=== PATIENT | male | born 1960 | race Caucasian/White ===

== ENCOUNTER 2022-07-12 15:45 | Inpatient (IN) | payer OTHER ==
[2022-07-12] VITALS (13 sets, daily range): BP systolic 93–155; BP diastolic 65–99
[~2022-07-12] VITALS: Ht 182.9 cm; Wt 148.0 kg
[~2022-07-12 15:45] MED LIST: CELE100 PO; LISI5 PO; LISINOPRIL-HCT1 EAC1 PO; ROSU10TA PO; WARF5 PO
--- NOTE | 2022-07-12 19:29 | NUR ---
DIRECT ADMIT / END OF SHIFT PT BROUGHT TO U-05 BY EMS FROM [facility] @ APPROX 1700. PT ABLE TO INDEPENDENTLY STAND & AMBULATE FROM [facility] TO U BED. PT VSS. MONITOR SHOWING SR, HR 60s-70s W/ PVCs. HEPARIN GTT INFUSING UPON ARRIVAL. EMS REPORTING PT C/O DIZZINESS DURATION OF TRAVEL FROM [facility] TO HERE. EMS REPORTING NITRO GIVEN X1 D/T PT REPORT OF MID CP & CP RELIEVED W/ NITRO. UPON ARRIVAL, PT REPORTING RETURN OF MID CP, RATING CP 6/10. MD NOTIFIED OF PT ARRIVAL & CP. EKG DONE & NITRO GIVEN PER MD ORDER. NITRO GIVEN X3 W/ PT REPORT OF MID CHEST PAIN REDUCING, BUT ALSO THEN REPORTING PAIN IN BETWEEN SHOULDER BLADES PRESENT & DENYING IMPROVEMENT. TROPONIN DRAWN, HIGHER THAN TROP DRAWN PER [facility]. MD NAVARRETE TO BEDSIDE FOR PT EVALUATION W/ ORDER FOR STAT CTA [place] & STRICT BEDREST. PT GONE TO IMAGING, SLID OVER FROM PCU BED TO [facility] BY 4 STAFF MEMBERS. PT NOW BACK IN . PT NPO. HEPARIN GTT INFUSING PER ORDERS & NS GTT INITIATED PER MD ORDERS. REPORT GIVEN TO ACCEPTING INSEMINATION WORKER RN.
[2022-07-12 21:04] LABS: Hematocrit 37.2 % (37.0-53.0); Hemoglobin 11.9 g/dL (13.5-17.5)
[2022-07-13] VITALS (11 sets, daily range): BP systolic 103–126; BP diastolic 54–85
--- NOTE | 2022-07-13 02:35 | NUR ---
PATIENT UPDATE PATIENT WITH CHEST PAIN THAT WAS UNRELIEVED BY SL NITRO X3 PER EMAR EARLIER IN THE NIGHT. ORDER PLACED FOR IV MORPHINE PER MD ARAUZ. CHEST PAIN DESCRIBED 6-7/10, SHARP/BURNING, THAT RADIATES TO SHOULDER/BACK. AFTER MORPHINE ADMINISTRATION PATIENT STATED THAT IT "TOOK THE EDGE OFF" AND WAS A 2-3 AND HE WOULD BE ABLE TO SLEEP. PATIENT STATING THAT THE CHEST PAIN COMES IN WAVES. VITALS STABLE. WILL CONTINUE TO MONITOR
--- NOTE | 2022-07-13 04:11 | NUR ---
PATIENT UPDATE PATIENT CALLED THIS RN TO REPORT CHEST PAIN THAT RETURNED APPROXIMATELY 1 HR AFTER ADMINISTRATION OF IV MORPHINE. PATIENT REPORTING THAT PAIN RETURNED TO 6/10 WITH CONTINUED CHARACTERISTICS PREVIOUSLY DESCRIBED IN LAST NOTE BY THIS RN. CALL PLACED TO MD ARAUZ REGARDING CHEST PAIN. MD ARAUZ WITH ORDERS FOR DILAUDID; GIVEN PER EMAR. PATIENT REPORTED RELIEF AND HAS BEEN SLEEPING SINCE.
[2022-07-13 04:37] LABS: BASOPHILS ABSOLUTE AUTO 0.02 K/mm3 (0.00-0.23); BASOPHILS PERCENT AUTO 0 % (0-2); EOSINOPHILS ABSOLUTE AUTO 0.06 K/mm3 (0.00-0.68); EOSINOPHILS PERCENT AUTO 1 % (0-6); Hematocrit 36.5 % (37.0-53.0); Hemoglobin 11.6 g/dL (13.5-17.5); IMMATURE GRAN ABSOLUTE AUTO 0.01 K/mm3 (0.00-0.10); IMMATURE GRAN PERCENT AUTO 0 % (0-1); LYMPHOCYTES ABSOLUTE AUTO 1.88 K/mm3 (0.84-5.20); LYMPHOCYTES PERCENT AUTO 32 % (21-46); MONOCYTES ABSOLUTE AUTO 0.66 K/mm3 (0.16-1.47); MONOCYTES PERCENT AUTO 11 % (4-13); Mean Corpuscular HGB 30.6 pg (26.0-34.0); Mean Corpuscular HGB Conc 31.8 g/dL (31.5-36.5); Mean Corpuscular Volume 96 fL (80-100); Mean Platelet Volume 10.2 fL (9.1-12.4); NEUTROPHILS ABSOLUTE AUTO 3.34 K/mm3 (1.96-9.15); NEUTROPHILS PERCENT AUTO 56 % (41-73); Platelet Count 198 K/mm3 (150-400); RDW Coefficient Variation 13.9 % (11.7-14.2); RDW Standard Deviation 48.9 fL (35.1-46.3); Red Blood Cell Count 3.79 M/mm3 (4.30-5.90); White Blood Cell Count 5.97 K/mm3 (4.00-11.30)
[2022-07-13 05:17] LABS: Alanine Aminotransfer (ALT/SGP 28 U/L (12-78); Albumin, Blood 3.1 g/dL (3.4-5.0); Alk Phos 61 U/L (50-136); Anion Gap 7 mmol/L (6-16); Aspartate Aminotrans (AST/SGOT 54 U/L (12-37); Bilirubin, Total 0.4 mg/dL (0.1-1.0); Blood Urea Nitrogen 24 mg/dL (8-24); Bun/Creatinine Ratio 22.9 (12.0-20.0); CHOL/HDL RATIO 3.1; CO2, Blood 26 mmol/L (21-32); Calcium, Blood 8.4 mg/dL (8.5-10.1); Chloride, Blood 109 mmol/L (98-108); Cholesterol 192 mg/dL (50-200); Creatinine, Blood 1.05 mg/dL (0.60-1.20); Globulin, Blood 3.2 g/dL (2.2-4.0); Glomerular Filtration Rate 80 (60-); Glucose, Blood 103 mg/dL (70-99); HDL Cholesterol 62 mg/dL (>39); LDL/HDL RATIO 1.8; Low Density Lipoprotein Chol 114 mg/dL (0-110); Potassium, Blood 3.6 mmol/L (3.5-5.5); Sodium, Blood 142 mmol/L (136-145); Total Protein, Blood 6.3 g/dL (6.4-8.2); Triglycerides 78 mg/dL (30-160); Very Low Density Lipoprot Chol 15 mg/dL (6-32)
--- NOTE | 2022-07-13 05:17 | NUR ---
SHIFT SUMMARY PATIENT CURRENTLY SLEEPING. SEE PREVIOUS NOTES REGARDING CHEST PAIN. ON RA WITH SPO2 >92%. BP STABLE. SR ON MONITOR WITH OCCASIONAL PVC'S WITH HR 60-70'S. AFEBRILE. NO ST CHANGES NOTED ON MONITOR. SEVERAL OCCURANCES OF CHEST PAIN THROUGHOUT THIS SHIFT. UNRELIEVED BY SL NITRO AND MORPHINE. 1MG IV DILAUDID GIVEN WITH NOTED IMPROVEMENT. HEP GTT INFUSING PER EMAR. NS INFUSING PER EMAR. PT HAS BEEN NPO SINCE MIDNIGHT. AT BEDSIDE. BED IN LOWEST POSITION AND CALL LIGHT WITHIN REACH. THIS RN MIKEY CONTINUE TO MONITOR UNTIL SHIFT CHANGE AT 0700
[2022-07-13 09:53] LABS: International Normalized Ratio 1.4; Prothrombin Time Results 14.4 Sec (9.7-11.5)
--- NOTE | 2022-07-13 16:52 | NUR ---
END OF SHIFT SUMMARY PT IS A&O X4. VSS. SPO2 >92% ON RA. SINUS RHYHM HR 50'S-70'S. PT FREQUENTLY REPORTING CP. PT MEDICATED PER EMAR. PT TO COMMERCIAL ESCROW ASSISTANT THIS AM FOR ANGIOGRAM. PT BACK WITH TR BAND IN R WRIST. SITE WNL. TR BAND FULLY RECOVERED. ARM BAND IN PLACE. PT CONTINUES TO HAVE CP. EKG DONE @ BEDSIDE PER MD ORDERS. PT MEDICATED FOR PAIN PER ORDERS. PT REPORTING NAUSEA AND UNABLE TO TOLERATE FOOD. PT MEDICATED PER ORDERS W/ RELIEF OF NAUSEA. NS GTT INFUSING @ 125 ML/HR. PT W/ NO OTHER COMPLAINTS AT THIS TIME. MD W/ ORDERS TO MAKE PT MEDICAL WITH TELE STATUS AND CONITNUE TO MONITOR CP. BED IN LOWEST POSITION & CALL LIGHT IN REACH.
--- NOTE | 2022-07-13 19:02 | NUR ---
TRANSFER PT MEDICAL W/ TELE STATUS. REPORT GIVEN TO ACCEPTING SURGIAL FLOOR RN ASSUMING CARE OF PT. PT TAKEN TO RM 227 W/ BELONGINGS & FAMILY PRESENT. PT W/ CONTINUED CP DESPITE PAIN MEDICATION PER EMAR, BUT PT REPORTING PAIN IMPROVED. NS GTT INFUSING PER ORDERS.
[2022-07-14 04:20] VITALS: BP 119/77
[2022-07-14 04:27] LABS: BASOPHILS ABSOLUTE AUTO 0.01 K/mm3 (0.00-0.23); BASOPHILS PERCENT AUTO 0 % (0-2); EOSINOPHILS ABSOLUTE AUTO 0.04 K/mm3 (0.00-0.68); EOSINOPHILS PERCENT AUTO 1 % (0-6); Hemoglobin 10.6 g/dL (13.5-17.5); IMMATURE GRAN ABSOLUTE AUTO 0.01 K/mm3 (0.00-0.10); IMMATURE GRAN PERCENT AUTO 0 % (0-1); LYMPHOCYTES ABSOLUTE AUTO 1.46 K/mm3 (0.84-5.20); LYMPHOCYTES PERCENT AUTO 25 % (21-46); MONOCYTES ABSOLUTE AUTO 0.59 K/mm3 (0.16-1.47); MONOCYTES PERCENT AUTO 10 % (4-13); Mean Corpuscular HGB Conc 32.1 g/dL (31.5-36.5); Mean Corpuscular Volume 97 fL (80-100); Mean Platelet Volume 10.5 fL (9.1-12.4); NEUTROPHILS ABSOLUTE AUTO 3.63 K/mm3 (1.96-9.15); NEUTROPHILS PERCENT AUTO 63 % (41-73); Platelet Count 191 K/mm3 (150-400); RDW Coefficient Variation 13.8 % (11.7-14.2); RDW Standard Deviation 49.1 fL (35.1-46.3); Red Blood Cell Count 3.42 M/mm3 (4.30-5.90); White Blood Cell Count 5.74 K/mm3 (4.00-11.30)
[2022-07-14 04:48] LABS: International Normalized Ratio 1.42; Prothrombin Time Results 14.6 Sec (9.7-11.5)
[2022-07-14 04:55] LABS: Albumin, Blood 2.9 g/dL (3.4-5.0); Albumin/Globulin Ratio 0.9 (0.8-1.8); Bilirubin, Total 0.4 mg/dL (0.1-1.0); Bun/Creatinine Ratio 17.8 (12.0-20.0); Calcium, Blood 8.4 mg/dL (8.5-10.1); Creatinine, Blood 1.07 mg/dL (0.60-1.20); Globulin, Blood 3.1 g/dL (2.2-4.0); Potassium, Blood 3.6 mmol/L (3.5-5.5)
--- NOTE | 2022-07-14 06:20 | NUR ---
SHIFT SUMMARY PCU TRANSFER, ADMITTED FOR CP/ NSTEMI. PT DENIES CP DURING ASSESSMENT. PLEASANT AND COOPERATIVE. AT SIDE. A&OX4, VSS W/ TELE IN PLACE. PER INPUT OUTPUT CLERK SB @54 W/ 1 DEGREE HEART BLOCK. INDEPENDANT TO BATHROOM. DENIES N/T, N/V, OR SOB. ELEVATED TOPONIN @5217. USE OF O2 DURING SLEEP R/T SLEEP APNEA W/OUT USE OF CPAP. PT REPORTS DOES NOT USE AT HOME. EDUCATED ON IMPORTANCE OF CPAP USE AND HEALTH RISKS ASSOCIATED TO NON USE. NO ACUTE CHANGES THIS SHIFT, WILL REPORT TO DAY SHIFT STAFF.
[2022-07-14 07:32] VITALS: BP 132/80
--- NOTE | 2022-07-14 08:29 | NUR ---
PATIENT WENT ON A WALK WITH THIS NURSE AND MADE TWO BIG HAVASUPAI LAPS FROM SURGICAL TO OVER TO PCU AND BACK. PATIENT REPORTS "I ONLY HAVE A SMALL AMOUNT OF CHEST PAIN BUT NOTHING CLOSE TO HOW IT WAS BEFORE". PATIENT IS LAYING BACK IN BED WITH CALL LIGHT IN REACH. PATIENT WILL GO ON ANOTHER WALK IN A FEW MINUTES AGAIN.
--- NOTE | 2022-07-14 09:17 | NUR ---
THIS NURSE AND THE PATIENT DID ANOTHER 2 BIG LOOPS WITH NO CHEST PAIN OR SHORTNESS OF BREATH. HE IS BACK IN HIS ROOM SITTING ON HIS BED WITH CALL LIGHT IN REACH. THIS NURSE CALLED DR. CERNA AND REPORTED THE PATIENTS TOTAL OF 4 WALKS WITH NO CHEST PAIN AND DR. CERNA SAID HE WAS CLEARED TO EAT AND DISCHARGE WHEN THE HOSPITALIST IS READY.
[2022-07-14] MEDS ORDERED: ASPI81CH PO (11:52)
[2022-07-14] MEDS ORDERED: ATOR80 PO (11:53)
[2022-07-14] MEDS ORDERED: Isosorbide Mono30 MG PO (11:53)
[2022-07-14] MEDS ORDERED: CLOP75 PO (11:53)
[2022-07-14] MEDS ORDERED: METO25 PO (11:54)
--- NOTE | 2022-07-14 12:28 | NUR ---
DISCHARGE NOTE: PATIENT AND WERE EDUCATED ON DISCHARGE INSTRUCTIONS. BOTH VERBALIZED UNDERSTANDING OF INSTRUCTIONS AND HAD NO FURTHER QUESTIONS. BOTH IVS ARE TAKEN OUT AND WNL. RADIAL SITE HAS TEGADERM IS C/D/I WITH HIS ARM BOARD INTACT. PATIENT DID 4 BIG LAPS AROUND THE UNIT WITH NO CHEST PAIN OR SHORTNESS OF BREATH. HE IS TOLERATING PO INTAKE AND IS VOIDING. PERSCRIPTIONS WERE FAXED TO THE [facility]. HE IS DRESSED AND HAS ALL PERSONAL ITEMS IN THE ROOM GATHERED. PATIENT REFUSED TO BE TAKEN OUT IN WHEELCHAIR AND IS WALKING OUT WITH HIS TO THE CAR TO BE TAKEN HOME.
== END 2022-07-14 12:27 | disposition home or self-care (01) | DRG 280 ==
LOC: PCU 15:45 → SURS 07-13 18:51
PROVIDERS: Family Medicine; ADMIT Hospitalist
PROC: 4A023N7 Measurement of Cardiac Sampling and Pressure, Left Heart, Percutaneous Approach (ICD-10-PCS; principal; 2022-07-13)
PROC: B2111ZZ Fluoroscopy of Multiple Coronary Arteries using Low Osmolar Contrast (ICD-10-PCS; 2022-07-13)
PROC: B2151ZZ Fluoroscopy of Left Heart using Low Osmolar Contrast (ICD-10-PCS; 2022-07-13)
PROC: B24BZZ3 Ultrasonography of Heart with Aorta, Intravascular (ICD-10-PCS; 2022-07-13)
DX: I21.4 Non-ST elevation (NSTEMI) myocardial infarction (principal); I25.42 Coronary artery dissection; H34.8122 Central retinal vein occlusion, left eye, stable; Z68.41 Body mass index [BMI] 40.0-44.9, adult; E78.5 Hyperlipidemia, unspecified; G47.33 Obstructive sleep apnea (adult) (pediatric); K31.89 Other diseases of stomach and duodenum; E66.9 Obesity, unspecified; I12.9 Hypertensive chronic kidney disease with stage 1 through stage 4 chronic kidney disease, or unspecified chronic kidney disease; N18.9 Chronic kidney disease, unspecified; F10.10 Alcohol abuse, uncomplicated; R79.89 Other specified abnormal findings of blood chemistry; F17.210 Nicotine dependence, cigarettes, uncomplicated; Z71.6 Tobacco abuse counseling; Z91.148 Patient's other noncompliance with medication regimen for other reason; Z95.5 Presence of coronary angioplasty implant and graft; Z98.890 Other specified postprocedural states; Z88.0 Allergy status to penicillin; Z79.01 Long term (current) use of anticoagulants; Z91.038 Other insect allergy status; Z79.899 Other long term (current) drug therapy
CPT/HCPCS: 36415; 71275; 74175; 76937; 80053; 80061; 82947; 83036; 84443; 84484; 85014; 85018; 85025; 85610; 85730; 93005; 93010; 93458; 99152; 99153; A9270; C1769; C1887; C1894; C8929; J1170; J1644; J2250; J2270; J2405; J3010; J7030; J7050; Q9957; Q9967

== ENCOUNTER 2023-02-17 15:05 | Emergency (ER) | payer OTHER ==
[~2023-02-17] VITALS: Ht 182.9 cm; Wt 142.0 kg
[~2023-02-17 15:05] MED LIST changes: +ASPI81CH PO; +ATOR80 PO; +CLOP75 PO; +Isosorbide Mono30 MG PO; +METO25 PO
[2023-02-17 15:10] VITALS: BP 150/71
[2023-02-17 15:44] LABS: BASOPHILS ABSOLUTE AUTO 0.02 K/mm3 (0.00-0.23); BASOPHILS PERCENT AUTO 0 % (0-2); EOSINOPHILS ABSOLUTE AUTO 0.03 K/mm3 (0.00-0.68); EOSINOPHILS PERCENT AUTO 0 % (0-6); Hematocrit 38.5 % (37.0-53.0); Hemoglobin 12.7 g/dL (13.5-17.5); IMMATURE GRAN ABSOLUTE AUTO 0.02 K/mm3 (0.00-0.10); IMMATURE GRAN PERCENT AUTO 0 % (0-1); LYMPHOCYTES ABSOLUTE AUTO 1.99 K/mm3 (0.84-5.20); LYMPHOCYTES PERCENT AUTO 29 % (21-46); MONOCYTES ABSOLUTE AUTO 0.46 K/mm3 (0.16-1.47); MONOCYTES PERCENT AUTO 7 % (4-13); Mean Corpuscular HGB 31.4 pg (26.0-34.0); Mean Corpuscular Volume 95 fL (80-100); NEUTROPHILS ABSOLUTE AUTO 4.24 K/mm3 (1.96-9.15); NEUTROPHILS PERCENT AUTO 63 % (41-73); Platelet Count 324 K/mm3 (150-400); RDW Coefficient Variation 13.9 % (11.7-14.2); RDW Standard Deviation 48.6 fL (35.1-46.3); Red Blood Cell Count 4.04 M/mm3 (4.30-5.90); White Blood Cell Count 6.76 K/mm3 (4.00-11.30)
[2023-02-17 16:02] LABS: Albumin, Blood 3.6 g/dL (3.4-5.0); Bilirubin, Total 0.3 mg/dL (0.1-1.0); Bun/Creatinine Ratio 21.4 (12.0-20.0); Calcium, Blood 8.9 mg/dL (8.5-10.1); Creatinine, Blood 1.12 mg/dL (0.60-1.20); Globulin, Blood 3.5 g/dL (2.2-4.0); Potassium, Blood 3.9 mmol/L (3.5-5.5); Total Protein, Blood 7.1 g/dL (6.4-8.2)
== END 2023-02-17 17:05 | disposition home or self-care (01) ==
LOC: ER 15:05
PROVIDERS: Student in an Organized Health Care Education/Training Program
DX: Z53.21 Procedure and treatment not carried out due to patient leaving prior to being seen by health care provider (principal)
CPT/HCPCS: 71046; 80053; 83690; 83880; 84484; 85025; 93005; 93010; 99284-25